=== PATIENT | female | born 1990 | race Caucasian/White ===

== ENCOUNTER → 2017-10-09 | Outpatient (CLI) | payer OTHER | LOC: COL.RAD 20:59 | DX: O20.9 Hemorrhage in early pregnancy, unspecified (principal); Z3A.00 Weeks of gestation of pregnancy not specified ==

== ENCOUNTER 2018-05-13 05:56 | Inpatient (IN) | payer OTHER ==
[~2018-05-13] VITALS: Ht 162.7 cm; Wt 108.2 kg
[2018-05-13] VITALS (16 sets, daily range): BP systolic 99–133; BP diastolic 37–78; PULSE 60–112; TEMP 98.3–99.3
[2018-05-13] MEDS ORDERED: PROVENTIL0.09 MG/A1 IH (09:53)
[2018-05-13] MEDS ORDERED: PROFERRIN ES12 MG PO (09:54)
[2018-05-13] MEDS ORDERED: PRENATAL MVI (09:54)
[2018-05-13 11:12] LABS: BASO % 0.2 % (0.0-2.0); EOS # 0.1 (0.0-0.7); GRAN # 6.5 (1.4-6.5); GRAN % 78.8 % (42.2-75.2); HEMOGLOBIN 11.2 g/dl (12.5-16.0); LYMPH # 1.2 (1.2-3.4); LYMPH % 13.9 % (20.0-51.0); MEAN CELL VOLUME 88 fl (80.0-100.0); MEAN CORPUSCULAR HEMOGLOBIN 28 pg (27.0-31.0); MEAN CORPUSCULAR HGB CONC 32 g/dl (33.0-37.0); MEAN PLATELET VOLUME 12.5 fl (7.4-10.4); MONO # 0.5 (0.1-0.6); MONO % 5.4 % (1.7-9.3); PLATELET COUNT 209 K/mm3 (130-400); RED BLOOD COUNT 3.99 M/mm3 (4.10-5.30); REDCELL DISTRIBUTION WIDTH-CV 17.8 % (11.5-14.5)
[2018-05-13 11:18] LABS: HEMATOCRIT 35.1 % (37.0-47.0)
[2018-05-13] MEDS ORDERED: MOTRIN 800800 MG/TAB PO (11:55)
[2018-05-13] MEDS ORDERED: PERCOCET 325 MG1 TA2 PO (11:55)
[2018-05-14 01:00] VITALS: BP 136/70; PULSE 88; TEMP 98.1
[2018-05-14 03:58] VITALS: BP 135/65; PULSE 86; TEMP 98.6
[2018-05-14 06:45] VITALS: BP 131/55; PULSE 90; TEMP 98.1
[2018-05-14 07:21] LABS: HEMATOCRIT 27.5 % (37.0-47.0); HEMOGLOBIN 8.6 g/dl (12.5-16.0)
[2018-05-14 16:30] VITALS: BP 132/62; PULSE 105; TEMP 98.8
[2018-05-14 19:30] VITALS: BP 134/52; PULSE 62; TEMP 98.3
[2018-05-15 08:26] VITALS: BP 120/65; PULSE 112; TEMP 97.4
== END 2018-05-15 12:15 | disposition home or self-care (01) | DRG 765 ==
LOC: LDR 05:56 → OB 10:06 → LDR 10:06 → OB 05-15 12:15
PROVIDERS: Obstetrics & Gynecology
PROC: 10D00Z1 Extraction of Products of Conception, Low, Open Approach (ICD-10-PCS; principal; 2018-05-13)
DX: O34.211 Maternal care for low transverse scar from previous cesarean delivery (principal); D62 Acute posthemorrhagic anemia; Z68.41 Body mass index [BMI] 40.0-44.9, adult; Z3A.37 37 weeks gestation of pregnancy; Z37.0 Single live birth; O75.82 Onset (spontaneous) of labor after 37 completed weeks of gestation but before 39 completed weeks gestation, with delivery by (planned) cesarean section; O99.02 Anemia complicating childbirth; J45.909 Unspecified asthma, uncomplicated; O99.214 Obesity complicating childbirth; O26.893 Other specified pregnancy related conditions, third trimester
CPT/HCPCS: J0171; J0690; J1885; J2370; J2405; J2590; J2704; J3010; J7120

== ENCOUNTER → 2020-08-29 | Outpatient (CLI) | payer OTHER ==
[~2020-08-29] MED LIST: MOTRIN 800800 MG/TAB PO; PERCOCET 325 MG1 TA2 PO; PRENATAL MVI; PROFERRIN ES12 MG PO; PROVENTIL0.09 MG/A1 IH
== END ==
LOC: ZCOL.LAB 21:17
DX: T81.89XD Other complications of procedures, not elsewhere classified, subsequent encounter (principal)